=== PATIENT | female | born 1995 | race American Indian/Alaskan Native ===

== ENCOUNTER 2016-06-11 10:17 | Outpatient (CLI) | payer MEDICAID ==
[2016-06-11 12:05] VITALS: BP 101/65
== END 2016-06-11 12:21 | disposition home or self-care (01) ==
LOC: TRG 10:17
PROVIDERS: ATTEND Obstetrics & Gynecology
DX: Z34.92 Encounter for supervision of normal pregnancy, unspecified, second trimester (principal); Z3A.18 18 weeks gestation of pregnancy
CPT/HCPCS: 59025

== ENCOUNTER 2016-08-12 05:04 | Outpatient (CLI) | payer MEDICAID ==
[~2016-08-12 05:04] MED LIST: LACTATED RINGERS 1,000 ML ONE
[2016-08-12] MEDS ORDERED: LACTATED RINGERS 500 ML IV ONE (05:07)
[2016-08-12 05:16] VITALS: BP 111/58
[2016-08-12 06:45] LABS: Bilirubin,Urine NEG (Negative); Blood,Urine NEG (Negative); Ketones,Urine NEG (Negative); Leukocyte Esterase,Urine MOD (Negative); Mucus,Urine FEW /HPF; Nitrite,Urine NEG (Negative); Protein,Urine <15 mg/dL mg/dL (Negative); Urobilinogen,Urine < 2.0 mg/dL (<2.0)
== END 2016-08-12 07:13 | disposition home or self-care (01) ==
LOC: TRG 05:04
PROVIDERS: ATTEND Obstetrics & Gynecology
DX: O47.03 False labor before 37 completed weeks of gestation, third trimester (principal); Z3A.30 30 weeks gestation of pregnancy
CPT/HCPCS: 59025; 81001; 96360; J7120